=== PATIENT | female | born 1970 | race Caucasian/White ===

== ENCOUNTER 2022-04-22 15:24 | Outpatient (CLI) | payer OTHER, SELFPAY | END 2022-04-22 15:25 | disposition home or self-care (01) | LOC: LKVREF 15:24 | PROVIDERS: PCP Emergency Medicine; Visit Provider Emergency Medicine | DX: Z00.00 Encounter for general adult medical examination without abnormal findings (principal); I10 Essential (primary) hypertension | CPT/HCPCS: 80048 ==

== ENCOUNTER 2022-05-27 09:55 | Outpatient (CLI) | payer OTHER, SELFPAY | END 2022-05-27 09:56 | disposition home or self-care (01) | PROVIDERS: PCP Emergency Medicine; Visit Provider Emergency Medicine | DX: Z00.00 Encounter for general adult medical examination without abnormal findings (principal); I10 Essential (primary) hypertension; N92.0 Excessive and frequent menstruation with regular cycle | CPT/HCPCS: 80048; 84443 ==

== ENCOUNTER 2022-05-29 14:42 | Outpatient (CLI) | payer OTHER, SELFPAY ==
--- NOTE | 2022-05-29 15:00 | CRLHL7_ITS ---
For Patients: As a result of the Century Cures Act, medical imaging exams and procedure reports are released immediately into your electronic medical record. You may view this report before your referring provider. If you have questions, please contact your health care provider. CLINICAL HISTORY: Menorrhagia TECHNIQUE: Real time, ann scale images were acquired of the pelvis using a transabdominal and transvaginal approach. Color Doppler analysis was performed of the ovaries. FINDINGS: The uterus measures 12.2 x 6 x 4.5 centimeter. Exophytic extremely heterogeneous mass near the uterine fundus measuring 11.1 x 9.4 x 9 centimeters. This could be related to a pedunculated fibroid. Endometrium measures 1.4 centimeters. Left ovary measures 4.3 x 3.3 x 2.6 centimeters. Right ovary is not seen. Probable corpus luteum cyst left ovary measuring 2 x 1 x 1.8 x 2.1 centimeters there is also an anechoic cyst in the left ovary measuring 3.3 centimeters. IMPRESSION: 1. 1.4 centimeter endometrial stripe. 2. Large extremely heterogeneous mass abutting the uterine fundus probably related to a pedunculated fibroid measuring 11.1 x 9.4 x 9 centimeters. Dictated by Sherie Breen MD @ 05/30/2022 7:37:41 AM (Electronically Signed)
== END 2022-05-29 14:43 | disposition home or self-care (01) ==
LOC: US 14:45
PROVIDERS: PCP Emergency Medicine; Visit Provider Emergency Medicine
DX: N92.0 Excessive and frequent menstruation with regular cycle (principal); R19.00 Intra-abdominal and pelvic swelling, mass and lump, unspecified site
CPT/HCPCS: 76830; 76856

== ENCOUNTER 2022-07-30 13:29 | Outpatient (CLI) | payer OTHER, SELFPAY ==
--- NOTE | 2022-07-30 13:40 | CRLHL7_ITS ---
For Patients: As a result of the Century Cures Act, medical imaging exams and procedure reports are released immediately into your electronic medical record. You may view this report before your referring provider. If you have questions, please contact your health care provider. BILATERAL SCREENING MAMMOGRAM WITH COMPUTER-AIDED DETECTION AND TOMOSYNTHESIS TECHNIQUE: CC and MLO views were obtained. These mammographic images have been obtained using full-field digital technique. These mammographic images were interpreted with the benefit of computer-aided detection. Breast Tomosynthesis was used in this interpretation. COMPARISON FILM: Baseline. FINDINGS: The breasts are heterogeneously dense, which may obscure small masses IMPRESSION: There is no radiographic evidence for malignancy. ASSESSMENT: BI-RADS Category 2: Benign RECOMMENDATION: Routine screening mammogram in 1 year. A lay language report of this examination will be provided to the patient. Keanu Howard M.D. Diagnostic/Nuclear Medicine Radiologist [email or web address] RADHA/Dictated by: Keanu Howard MD @ 07/31/2022 10:04:00 AM (Electronically Signed)
== END 2022-07-30 13:30 | disposition home or self-care (01) ==
LOC: MAMMO 13:29
PROVIDERS: PCP Emergency Medicine; Visit Provider Emergency Medicine
DX: Z12.31 Encounter for screening mammogram for malignant neoplasm of breast (principal); R92.2 Inconclusive mammogram
CPT/HCPCS: 77063; 77067

== ENCOUNTER 2022-10-26 13:18 | Emergency (ER) | payer OTHER, SELFPAY ==
[2022-10-26] VITALS (27 sets, daily range): BP systolic 124–146; BP diastolic 84–98; PULSE 69–91; RESP 16; TEMP 36.8; O2SAT 90–97; BMI 35.1
--- NOTE | 2022-10-26 14:09 | CRLHL7_ITS ---
For Patients: As a result of the Century Cures Act, medical imaging exams and procedure reports are released immediately into your electronic medical record. You may view this report before your referring provider. If you have questions, please contact your health care provider. INDICATION: Lower abdominal pain. TECHNIQUE: CT abdomen and pelvis acquired with 94 mL Isovue 370 contrast. COMPARISON: None. FINDINGS: Lower chest: No focal consolidation. Liver: Diffuse hepatic steatosis. Gallbladder and bile ducts: Gallbladder is surgically absent. Prominence of the biliary ducts, likely secondary to postcholecystectomy state. Pancreas: Unremarkable. Spleen: Unremarkable. Splenule is noted. Adrenal glands: Unremarkable. Kidneys: Kidneys enhance symmetrically, without hydronephrosis. Retroperitoneum: No lymphadenopathy. Bowel and mesentery: Bowel is not obstructed. Normal appendix. Scattered colonic diverticulosis. Small pelvic abscess abuts the sigmoid colon. No definite pneumoperitoneum. Bladder: Extensive pericystic inflammation. The posterior bladder wall is not well evaluated secondary to extensive fluid and inflammation, bladder wall discontinuity cannot be excluded. Reproductive organs: Posthysterectomy. Dominant follicles are noted within the left ovary. Superior to the vaginal cuff, there is a small 2.5 x 2.0 cm fluid collection, worrisome for abscess. There are extensive inflammatory changes in the pelvis. Pelvic lymph nodes: No lymphadenopathy. Vessels: Few scattered atherosclerotic calcifications. Abdominal wall: No acute abdominal wall abnormality. Bones: Multilevel degenerative changes of the spine. No suspicious/aggressive focal osseous lesion. IMPRESSION: 1. Extensive pericystic inflammation, consistent with severe cystitis. Posterior bladder wall is not well evaluated secondary to extensive fluid and inflammation, and a bladder wall discontinuity cannot be excluded. If there are clinical signs of bladder rupture, recommend further evaluation with CT cystoscopy. 2. Small 2.5 x 2.0 cm fluid collection superior to the vaginal cuff, worrisome for an abscess. This may be postsurgical, depending on how recent the hysterectomy procedure was. Alternatively, the abscess may be secondary to bladder perforation or sequelae of acute diverticulitis. Please note that all CT scans at this facility use dose modulation, iterative reconstruction, and/or weight-based dosing when appropriate to reduce radiation dose to as low as reasonably achievable. Dictated by Jaren Metcalf MD @ 10/26/2022 6:30:46 PM (Electronically Signed)
--- NOTE | 2022-10-26 14:11 | ED_ITS ---
HPI - Abdominal Pain General Chief Complaint: Abdominal Pain Stated Complaint: Abdominal pain Time Seen by Provider: 10/26/22 13:31 History of Present Illness HPI narrative: This 52-year-old female comes in with lower abdominal pain. The pain is constant and began last night. She states that it is very severe and there was some episodes with the pain intensifies. She has not had anything to eat since last evening. She does not report any fevers. Pain is worse with movement. She does not report any vomiting or diarrhea. She did have a hysterectomy about 5 weeks ago and recovered normally from this. Related Data Previous Rx's Medication Instructions Recorded fluoxetine 40 mg capsule 40 mg PO QAM #90 caps 07/15/22 losartan 100 1 tab PO QDAY #90 tabs 07/15/22 mg-hydrochlorothiazide 12.5 mg tablet omeprazole 40 mg capsule,delayed 40 mg PO QDAY #90 caps 07/15/22 release losartan 100 1 tab PO QDAY #90 tabs 08/27/22 mg-hydrochlorothiazide 25 mg tablet amlodipine 5 mg tablet 5 mg PO QDAY #90 tabs 09/30/22 Allergies Allergy/AdvReac Type Severity Reaction Status Date / Time losartan AdvReac Intermediate Verified 10/26/22 15:19 Review of Systems Status of ROS Reports: 10 or more systems reviewed and unremarkable except as noted in History and below Narrative Constitutional: No fevers, no weight gain or loss. Eyes: No discharge. No vision changes. HENT: No congestion, no sore throat, no ear pain. Cardiovascular: No chest pain, no palpitations. Respiratory: No shortness of breath, no wheezes, no cough. Gastrointestinal: Abdominal pain as described above. Genitourinary: No dysuria, no hematuria. Musculoskeletal: Normal range of motion. Skin: No rashes, no pruritis. Neurological: No dizziness, weakness, sensory change, speech change. Endo/Heme/Allergies: No bruising or bleeding. No polydipsia. Pysch: no suicidality, no anxiety, no insomnia. All other systems reviewed and are negative. 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 - Pollock's esophagus without dysplasia (ICD-10) BMI 37.0-37.9, adult ?Z68.37 - Body mass index [BMI] 37.0-37.9, adult (ICD-10) Normal nuclear stress test Surgical History (Updated 04/20/22 @ 16:54 by Vicki Harrison) History of esophagogastroduodenoscopy (EGD) ?Z98.890 - Other specified postprocedural states (ICD-10) History of cholecystectomy ?Z90.49 - Acquired absence of other specified parts of digestive tract (ICD- 10) Family History Father Stroke, Onset Age: 35 High blood pressure Brother High blood pressure Mother High blood pressure Social History (Updated 04/20/22 @ 16:57 by Vicki Harrison) Narrative: Alcohol ingestion, 1-4 drinks per day- 2-3 beers per day Does not use illicit drugs Nonsmoker Smoking Status: Never smoker Do you use any of these nicotine containing products: None Second hand tobacco smoke exposure: No How often do you have a drink containing alcohol: monthly or less How many standard drinks containing alcohol do you have on a typical day: 1 or 2 How often do you have six or more drinks on one occasion: Never AUDIT-C Alcohol total score: 1 Non-prescribed substance use: denies use Little interest or pleasure in doing things: more than half the days Feeling down, depressed, or hopeless: not at all service: No Exam Narrative: Exam Narrative: Constitutional: Well-developed, well-nourished, no acute distress. HEENT: Normocephalic, atraumatic. Neck: Normal range of motion. Nontender. Supple. Heart: Regular. No murmurs. Normal rate. Intact distal pulses. Lungs: Clear to auscultation. No chest discomfort. No wheezes, rhonchi, or rales. Abdomen: Decreased bowel sounds. Tenderness across the lower abdomen with obvious rebound tenderness. Genitalia: Deferred. Back: No midline tenderness. Normal range of motion. Extremities: Normal range of motion. No injury. Skin: Intact. No rash. Warm. No erythema or pallor. Neurologic: No altered sensation. No weakness. Alert and oriented. Psychiatric: No suicidality. No anxiety or depression. No insomnia. Nursing notes and vitals signs are reviewed. Const: Vital Signs, click to edit/add: Vital Signs - 24 hr 10/26/22 13:41 10/26/22 14:31 10/26/22 14:33 Temperature 98.2 F Pulse Rate 74 Pulse Rate [Pulse Oximeter] 79 Respiratory Rate 16 Blood Pressure 142/90 H Blood Pressure [Ri ght Upper Arm] 146/98 H Pulse Oximetry 97 97 92 Oxygen Delivery Me thod Room Air 10/26/22 14:34 10/26/22 15:12 10/26/22 15:30 Temperature Pulse Rate 73 77 74 Pulse Rate [Pulse Oximeter] Respiratory Rate Blood Pressure Blood Pressure [Ri ght Upper Arm] Pulse Oximetry 91 95 90 Oxygen Delivery Me thod 10/26/22 15:32 10/26/22 16:00 10/26/22 16:02 Temperature Pulse Rate 72 73 71 Pulse Rate [Pulse Oximeter] Respiratory Rate Blood Pressure 127/88 124/91 H Blood Pressure [Ri ght Upper Arm] Pulse Oximetry 93 90 93 Oxygen Delivery Me thod 10/26/22 16:30 10/26/22 16:32 10/26/22 17:00 Temperature Pulse Rate 72 70 74 Pulse Rate [Pulse Oximeter] Respiratory Rate Blood Pressure 130/84 Blood Pressure [Ri ght Upper Arm] Pulse Oximetry 90 92 92 Oxygen Delivery Me thod 10/26/22 17:02 10/26/22 17:30 10/26/22 17:35 Temperature Pulse Rate 75 77 69 Pulse Rate [Pulse Oximeter] Respiratory Rate Blood Pressure 135/94 H Blood Pressure [Ri ght Upper Arm] Pulse Oximetry 93 96 94 Oxygen Delivery Me thod 10/26/22 18:00 10/26/22 18:05 Temperature Pulse Rate 78 73 Pulse Rate [Pulse Oximeter] Respiratory Rate Blood Pressure Blood Pressure [Ri ght Upper Arm] Pulse Oximetry 90 93 Oxygen Delivery Me thod Course Vital Signs Vital signs: Initial Vital Signs Temperature 98.2 F 10/26/22 13:41 Temperature Source Temporal Artery Scan 10/26/22 13:41 Pulse Rate 79 10/26/22 13:41 Pulse Rhythm Regular 10/26/22 13:41 Pulse Strength 3+ Normal 10/26/22 13:41 Respiratory Rate 16 10/26/22 13:41 Blood Pressure 146/98 H 10/26/22 13:41 Blood Pressure Mean 114 H 10/26/22 13:41 Blood Pressure Position Sitting 10/26/22 13:41 Pulse Oximetry 97 10/26/22 13:41 Oxygen Delivery Method Room Air 10/26/22 13:41 Vital Signs Temperature 98.2 F 10/26/22 13:41 Pulse Rate 79 10/26/22 13:41 Respiratory Rate 16 10/26/22 13:41 Blood Pressure 146/98 H 10/26/22 13:41 Pulse Oximetry 97 10/26/22 13:41 Oxygen Delivery Method Room Air 10/26/22 13:41 Temperature 98.2 F 10/26/22 13:41 Pulse Rate 73 10/26/22 18:05 Respiratory Rate 16 10/26/22 13:41 Blood Pressure 135/94 H 10/26/22 17:02 Pulse Oximetry 93 10/26/22 18:05 Oxygen Delivery Method Room Air 10/26/22 13:41 MDM - Abdominal Pain MDM Narrative Medical decision making narrative: This 52-year-old female comes in with severe lower abdominal pain and distinct to rebound tenderness. An IV was established and she received a half a mg of Dilaudid which brought good relief to her pain. She was here quite a long time and had another dose later on which has maintained sufficient pain relief for her. Labs are acquired which returned with reassuring findings. Her white count returns at [address] scan does show suspicion for an abscess with lots of fluid in the area around her bladder. Her urinalysis returns with normal results. I spoke with the surgeon on-call from [facility], Dr. Le, who is on-call for the surgeon who performed the hysterectomy, Dr. Greer. She recommended transfer to [facility]. I spoke with Dr. Vo, hospitalist on-call there, who agrees to her transfer there. The patient did receive an IV dose of Zosyn. Lab Data Labs: Lab Results 10/26/22 10/26/22 Range/Units 14:26 17:16 WBC 10.09 (4.50-11.00) K/uL RBC 4.05 (4.00-5.20) m/uL Hgb 12.4 (12.0-16.0) gm/dL Hct 37.3 (33.0-51.0) % MCV 92 (80-100) fL MCH 31 (26-34) pg MCHC 33 (32-36) gm/dL RDW Coeff of Deja 13.5 (11.5-15.5) % Plt Count 292 (140-440) K/uL Neut % (Auto) 74.8 H (42.0-72.0) % Lymph % (Auto) 16.6 L (20-44) % Wheeler % (Auto) 6.6 (0.0-11.0) % Eos % (Auto) 1.6 (0.0-7.0) % Baso % (Auto) 0.2 (0.0-3.0) % Neut # (Auto) 7.50 H (1.7-7.0) K/uL Lymph # (Auto) 1.70 (0.90-2.90) K/uL Wheeler # (Auto) 0.70 (0.00-0.90) K/UL Eos # (Auto) 0.16 (0.00-0.50) K/uL Baso # (Auto) 0.02 (0.00-0.30) K/uL Abs Immat Gran (auto) 0.02 (0.00-0.30) K/uL Imm/Tot Granulo (auto) 0.2 % Sodium 133 L (135-149) mmol/L Potassium 3.3 L (3.6-5.1) mmol/L Chloride 100 (96-114) mmol/L Carbon Dioxide 26 (20-32) mmol/L Anion Gap 7 (7-15) mEq/L BUN 10 (7-30) mg/dL Creatinine 0.9 (0.5-1.5) mg/dL Estimated Creat Clear 57.17 Estimated GFR 76 ml/min Glucose 106 (60-115) mg/dL Calcium 8.5 (8.4-10.6) mg/dL Urine Color Yellow (Yellow) Urine Appearance Clear (Clear) Urine pH 6.5 (5.0-8.5) Ur Specific [place] <= 1.005 (1.000-1.030) Urine Protein Negative (Negative) Urine Glucose (UA) Negative (Negative) Urine Ketones Negative (Negative) Urine Blood 1+ A (Negative) Urine Nitrite Negative (Negative) Urine Bilirubin Negative (Negative) Urine Urobilinogen 0.2 (0.2-1.0) Ur Leukocyte Esterase Negative (Negative) Urine RBC 0-2 (0-2) Urine WBC 2-5 (0-5) Ur Squamous Epith Cells Few (None-Few) Urine Bacteria None (None) Discharge Plan Discharge Clinical Impression: Abdominal abscess Patient Disposition: Xfer Other Condition: Stable Prescriptions: No Action losartan-hydrochlorothiazide 100-12.5 mg tablet 1 tab PO QDAY Qty: 90 3RF omeprazole 40 mg capsule,delayed release(DR/EC) 40 mg PO QDAY Qty: 90 3RF fluoxetine 40 mg capsule 40 mg PO QAM Qty: 90 1RF losartan-hydrochlorothiazide 100-25 mg tablet 1 tab PO QDAY Qty: 90 1RF amlodipine 5 mg tablet 5 mg PO QDAY Qty: 90 1RF Follow Up/Referrals: Cara Lomas MD [Primary Care Provider] - Stand Alone Forms: [employer] Info Instructions
[2022-10-26] MEDS: HYDROmorphone 0.5 mg/0.5 ml inj IVP ×3 (14:25→23:21)
[2022-10-26] MEDS: ONDANSETRON 2 MG/ML inj 4 MG IVP (14:25)
[2022-10-26 14:36] LABS: Basophils Absolute Auto 0.02 K/uL (0.00-0.30); Basophils Percent Auto 0.2 % (0.0-3.0); Eosinophils Absolute Auto 0.16 K/uL (0.00-0.50); Eosinophils Percent Auto 1.6 % (0.0-7.0); Hematocrit 37.3 % (33.0-51.0); Hemoglobin* 12.4 gm/dL (12.0-16.0); Immature Granulocytes Abs Auto 0.02 K/uL (0.00-0.30); Immature Granulocytes Pct Auto 0.2 %; Lymphocytes Percent Auto 16.6 % (20-44); Mean Corpuscular HGB Conc 33 gm/dL (32-36); Mean Corpuscular Hemoglobin 31 pg (26-34); Mean Corpuscular Volume 92 fL (80-100); Monocytes Percent Auto 6.6 % (0.0-11.0); Neutrophils Percent Auto 74.8 % (42.0-72.0); Platelet Count* 292 K/uL (140-440); RDW Coefficient of Variation % 13.5 % (11.5-15.5); Red Blood Count 4.05 m/uL (4.00-5.20); White Blood Count* 10.09 K/uL (4.50-11.00)
[2022-10-26 14:39] LABS: Slide Review Reflex No
[2022-10-26 14:58] LABS: Chloride* 100 mmol/L (96-114); Sodium* 133 mmol/L (135-149)
[2022-10-26 14:59] LABS: Potassium* 3.3 mmol/L (3.6-5.1)
[2022-10-26 15:01] LABS: Anion Gap 7 mEq/L (7-15); Carbon Dioxide* 26 mmol/L (20-32); Creatinine* 0.9 mg/dL (0.5-1.5); Est. Creatinine Clearance* 57.17; Estimated Glomerular Filt Rate 76 ml/min
[2022-10-26 15:02] LABS: Blood Urea Nitrogen* 10 mg/dL (7-30); Calcium* 8.5 mg/dL (8.4-10.6); Glucose* 106 mg/dL (60-115)
[2022-10-26 17:31] LABS: Appearance Urine Clear (Clear); Bilirubin Urine Negative (Negative); Color Urine Yellow (Yellow); Glucose Urine Negative (Negative); Ketones Urine Negative (Negative)
[2022-10-26 17:32] LABS: Blood Urine 1+ (Negative); Leukocyte Esterase Urine Negative (Negative); Nitrite Urine Negative (Negative); Protein Urine Negative (Negative); RBC Urine 0-2 (0-2); Specific Gravity Urine <= 1.005 (1.000-1.030); Urobilinogen Urine 0.2 (0.2-1.0); pH Urine 6.5 (5.0-8.5)
[2022-10-26 17:33] LABS: Squamous Epithelial Cell Urine Few (None-Few)
[2022-10-26] MEDS: PIPERACILLIN/TAZOBACTAM 3.375 GM in 0.9 % SODIUM CHLORIDE Mini-bag 100 ML IVPB (21:27)
--- NOTE | 2022-10-26 21:54 | ED.NURSE ---
Report given to Amy LANGLEY. All questions answered. Call placed to EMS for transport.
--- NOTE | 2022-10-26 23:24 | ED.NURSE ---
Pt given 0.5mg IV Dilaudid @ 1971. Pt transported via EMS to [facility] in stable condition. [facility] called and notified of pt leaving our facility.
== END 2022-10-26 23:23 | disposition other institution (70) ==
PROVIDERS: Emergency Provider Emergency Medicine Emergency Medical Services; PCP Emergency Medicine
DX: L02.211 Cutaneous abscess of abdominal wall (principal)
CPT/HCPCS: 36415; 74177; 80048; 81001; 85025; 94761; 96365; 96375; 99284; 99285; J1170; J2405; J2543; Q9967

== ENCOUNTER 2022-10-26 23:08 | Outpatient (CLI) | payer OTHER, SELFPAY | END 2022-10-26 23:09 | disposition home or self-care (01) | LOC: AMB 10-30 19:36 | PROVIDERS: PCP Emergency Medicine; Visit Provider Family Medicine | DX: R10.9 Unspecified abdominal pain (principal) | CPT/HCPCS: A0425; A0428 ==

== ENCOUNTER 2023-09-09 08:15 | Outpatient (CLI) | payer OTHER, SELFPAY | END 2023-09-09 08:16 | disposition home or self-care (01) | LOC: NFLDREF 09-10 07:32 | PROVIDERS: PCP Emergency Medicine; Referring Provider Emergency Medicine; Visit Provider Emergency Medicine | DX: Z00.00 Encounter for general adult medical examination without abnormal findings (principal); E78.5 Hyperlipidemia, unspecified; I10 Essential (primary) hypertension; Z68.37 Body mass index [BMI] 37.0-37.9, adult | CPT/HCPCS: 80048; 80061 ==

== ENCOUNTER 2024-06-29 11:03 | Outpatient (CLI) | payer OTHER, SELFPAY | END 2024-06-29 11:04 | disposition home or self-care (01) | LOC: LKVREF 11:03 | PROVIDERS: PCP Emergency Medicine; Visit Provider Emergency Medicine | DX: E78.2 Mixed hyperlipidemia (principal) | CPT/HCPCS: 80061 ==

== ENCOUNTER 2025-01-01 07:50 | Outpatient (CLI) | payer OTHER, SELFPAY | END 2025-01-01 07:51 | disposition home or self-care (01) | LOC: RAD 07:51 | PROVIDERS: PCP Physician Assistant Medical; Visit Provider Physician Assistant Medical | DX: I47.10 Supraventricular tachycardia, unspecified (principal); R00.2 Palpitations; R06.00 Dyspnea, unspecified | CPT/HCPCS: 93306 ==

== ENCOUNTER 2025-01-23 08:00 | Outpatient (RCR) | payer OTHER, SELFPAY ==
[2025-01-16] MEDS: REGADENOSON 0.4 MG/5 ML SYRINGE IVP (08:46)
[2025-01-16 09:04] VITALS: BP 112/70; PULSE 82; RESP 20; O2SAT 98
--- NOTE | 2025-01-16 09:15 | W.PM.STED ---
Stress Test Note Date Date Seen: 01/16/25 Date of test: 01/16/25 Providers Primary care provider: Sol Shay Stress test physician: Niru Salazar Stress Test Note Stress test ordered: Lexischannah Indication for test: Exercise induced SVT Stress test medicine: Lexiscan Results discussion: Resting EKG: Sinus rhythm, 87 beats per minute. Resting blood pressure: 102/70 Stress test: Patient is consented on ordered stress test of Lexiscan and agrees to proceed. She had some mild self-limited nausea with injection of the regadenoson but no other symptoms. There was no arrhythmia, no concerning EKG changes for ischemia. Patient tolerated this test quite well, maintained blood pressure with 122/82 after injection. Await nuclear images to couple this for a full formal diagnostic. Impression: Subjectively negative, objectively negative EKG portion of this Lexiscan. Follow up suggested: Patient was discharged from our portion of the test in stable condition. She will have her post-stress images and then be discharged to home to await contact from her primary ordering physician once the full formal report is back.
== END 2025-01-30 23:59 | disposition home or self-care (01) ==
LOC: STRESS 08:00
PROVIDERS: PCP Physician Assistant Medical; Visit Provider Physician Assistant Medical
DX: I47.10 Supraventricular tachycardia, unspecified (principal); R00.2 Palpitations; R06.00 Dyspnea, unspecified
CPT/HCPCS: 78452; 93016; 93017; A9500; J2785